=== PATIENT | female | born 2000 | race Caucasian/White ===

== ENCOUNTER 2023-11-29 18:44 | Emergency (ER) | payer OTHER, SELFPAY ==
--- NOTE | ~2023-11-29 | XR_ITS ---
EXAMINATION: XR FOREARM, RIGHT CLINICAL INFORMATION: Trauma. Pain COMPARISON: None available. TECHNIQUE: AP and lateral views of the right forearm were obtained. FINDINGS: There is a nondisplaced transverse fracture mid ulna. No additional fractures seen. The soft tissues are normal. XR/XR forearm RT 2V IMPRESSION: Nondisplaced fracture mid ulna. Electronically signed by: Red Kwan MD 11/29/2023 08:08 PM EDT
[2023-11-29 18:57] VITALS: BP 116/86; PULSE 91; RESP 16; TEMP 36.8; O2SAT 98; BMI 20.5
--- NOTE | 2023-11-29 18:57 | ED.GENADULT ---
HPI - General Adult General Chief complaint: Extremity Injury, Upper Stated complaint: rt arm ? fx/fell on stone step Time Seen by Provider: 11/29/23 22:05 Source: patient Limitations: no limitations History of Present Illness ED Provider: Kristin Ravi PA-C HPI narrative: Patient is a 23 year old female who presents today after a fall at 5:30 which caused her to hit her arm off of a stone step. Patient was outside of her house and tripped over her dog, and hit her right arm on a stone step while her fall. She states that she was still able to move her fingers, wrist, and elbow, however had severe pain. She rates her pain now as a 5/10. She denies numbness and tingling in her fingertips. No other injuries were sustained. Related Data Allergies Allergy/AdvReac Type Severity Reaction Status Date / Time fish derived [fish] AdvReac Anaphylaxis Verified 11/29/23 18:57 Review of Systems Review of Systems: Yes all other systems are reviewed and are negative Constitutional: Constitutional: Denies fever(s), Denies frequent falls and Denies weakness Eyes: Eyes: Denies change in vision ENT: Denies dizziness Cardiovascular: Cardiovascular: Denies chest pain, Denies syncope, Denies rapid heart rate, Denies palpitations and Denies dyspnea Respiratory: Respiratory: Denies hemoptysis and Denies dyspnea Gastrointestinal: Gastrointestinal: Denies change in bowel habits, Denies nausea and Denies vomiting Musculoskeletal: Musculoskeletal: Denies abnormal gait, Denies myalgias, Denies deformity, Denies joint swelling, Denies numbness and Denies tingling Neurologic: Denies abnormal gait, Denies dizziness, Denies syncope, Denies frequent falls, Denies numbness, Denies tingling and Denies weakness Endocrine: Endocrine: Denies palpitations PMFSH Social History Social History Smoked in Last 30 Days: No Use of substances other than those prescribed or required for medical reasons: No Advance Directives: No Advance Directives Information Provided: No Do you have a plan to hurt others: No Plan Physical Exam ED Vital Signs: Vital Signs - 24 hr 11/29/23 18:57 11/29/23 21:59 Temperature 98.3 F 98.2 F Pulse Rate 91 90 Respiratory Rate 16 18 Blood Pressure 116/86 119/64 Pulse Oximetry 98 100 Oxygen Delivery Method Room Air Room Air BMI result Body Mass Index 20.5 Const General: cooperative, healthy appearing, comfortable and no acute distress Nutritional Appearance: average body habitus and well nourished Orientation/consciousness: patient oriented x3 Limitations: no limitations Neck Neck: Yes no meningeal signs Resp Effort & Inspection: normal respiratory effort and able to speak in complete sentences Cardio Jugular venous distension: no JVD Rate: regular rate Rhythm: regular rhythm Skin Other: warm and dry, no rash General skin exam: no rashes or lesions noted Neuro Other: alert and oriented General: patient oriented x3, moves all extremities, no meningeal signs, no focal motor deficits and CN's II-XI intact bilaterally Cranial nerves: Yes CN's II-XII intact bilaterally Extrem General: Yes normal to inspection Right upper extremity: no cyanosis and no edema Psych Appearance: grossly normal Affect: normal affect Attitude: cooperative Course Course Course Narrative: RME, this is a rapid medical exam performed by Zaki Herrera please refer to primary provider for complete H&P- 23 year old female presents for evaluation of right arm pain after injuring herself while falling. She has pain to her right forearm after falling onto a stone step. Plan for xray Medications Administered Discontinued Medications Generic Name Dose Route Start Last Admin Trade Name Freq PRN Reason Stop Dose Admin Acetaminophen 975 mg 11/29/23 22:11 11/29/23 22:17 Acetaminophen 325 Mg Tablet PO 11/29/23 22:12 975 mg ONCE ONE Administration Ibuprofen 600 mg 11/29/23 22:11 11/29/23 22:17 Ibuprofen 600 Mg Tablet PO 11/29/23 22:12 600 mg ONCE ONE Administration Procedures Orthopedic Splinting/Casting Injury #1: Side: right Upper Extremity Injury Location: forearm Upper Extremity Immobilizer: sugar tong splint Medical Decision Making Medical Decision Making [facility] Narrative: Vasu Ravi PA-C personally assessed and manage the patient,Laura BENEDICT, helped to formulate the documentation Patient is a 23 year old female who presents today after a fall at 5:30 which caused her to hit her arm off of a stone step. Patient was outside of her house and tripped over her dog, and hit her right arm on a stone step while her fall. She states that she was still able to move her fingers, wrist, and elbow, however had severe pain. She rates her pain now as a 5/10. She denies numbness and tingling in her fingertips. No other injuries were sustained. Patient has a history of ADHD. She currently takes Zyrtec, ibuprofen, tylenol, and has a hormonal IUD in place. Differential diagnoses: radial/ulnar fracture, contusion, sprain. Plan: I was concerned for a contusion or sprain, however the X-Ray shows a nondisplaced fracture of the mid ulna, therefore ruling out the other possibilities. Per Kristin Ravi PA-C I have independently reviewed the following tests: X-ray:XR FOREARM, RIGHT CLINICAL INFORMATION: Trauma. Pain COMPARISON: None available. TECHNIQUE: AP and lateral views of the right forearm were obtained. FINDINGS: There is a nondisplaced transverse fracture mid ulna. No additional fractures seen. The soft tissues are normal. XR/XR forearm RT 2V IMPRESSION: Nondisplaced fracture mid ulna. Electronically signed by: Red Kwan MD 11/29/2023 08:08 PM EDT We will place the patient in a sugar-tong splint, they have their own orthopedic service to follow up with. Discharge Plan Discharge Clinical Impression: Fracture of right ulna Patient Disposition: Home, Self-Care Instructions: Arm Fracture in Adults (ED) Additional Instructions: You fractured the mid ulna on the right. Seek care instructions. Use the sling to help support the joint, keep the splint clean and dry. Call the orthopedic service tomorrow to establish a follow up appointment. You can use [id number] ibuprofen 600 mg taken every 6 hours with food, alternated with the use of [id number] Tylenol 1000 mg taken every 8 hours, for your pain. Print Language: [place]
[2023-11-29 21:59] VITALS: BP 119/64; PULSE 90; RESP 18; TEMP 36.8; O2SAT 100
--- NOTE | 2023-11-29 22:01 | MHC.EDTECH ---
Assumed care of patient at this time,introduced self to patient,vitals completed,call [facility] in reach
[2023-11-29] MEDS: Acetaminophen 325 MG TABLET 975 MG PO (22:17)
[2023-11-29] MEDS: Ibuprofen 600 MG TABLET PO (22:17)
[2023-11-29 23:34] VITALS: BP 122/73; PULSE 88; RESP 18; TEMP 36.7; O2SAT 98
--- NOTE | 2023-11-29 23:35 | MHC.EDTECH ---
Placed a sling to pts right arm,per providers order,pt tolerated well,vitals taken,patient is waiting to be discharged at this time
[2023-11-29 23:55] VITALS: BP 122/73; PULSE 88; RESP 18; TEMP 36.7; O2SAT 98
== END 2023-11-29 23:56 | disposition home or self-care (01) ==
PROVIDERS: Emergency Provider Emergency Medicine
DX: S52.201A Unspecified fracture of shaft of right ulna, initial encounter for closed fracture (principal); M79.601 Pain in right arm; W18.31XA Fall on same level due to stepping on an object, initial encounter; Y93.89 Activity, other specified; Y92.89 Other specified places as the place of occurrence of the external cause; Y99.8 Other external cause status
CPT/HCPCS: 29105; 73090; 99283; 99284